=== PATIENT | male | born 1985 | race Caucasian/White ===

== ENCOUNTER → 2017-09-07 | Outpatient (CLI) | payer BC ==
--- NOTE | 2017-09-07 15:11 | KCIC ---
CHEST PA LATERAL dated 09/07/2017 12:00 AM. Comparison: None. Clinical Indication: Cough, SYMPTOMS FOR ONE MONTH Findings: PA and lateral views obtained. Heart and mediastinal contours are within normal limits. Lungs are clear without focal consolidation. Vascular interstitium within normal limits. No pleural effusion or pneumothorax. Impression: No evidence of focal pneumonia. Electronically signed by: Ramesh Lang MD (09/07/2017 3:08 PM) [id number]
== END | disposition home or self-care (01) ==
LOC: KCIC 14:16
PROVIDERS: ATTEND Nurse Practitioner Family
DX: R05 Cough (principal)
CPT/HCPCS: 71020